=== PATIENT | female | born 1945 | race African-American/Black ===

== ENCOUNTER 2016-07-20 15:43 | Emergency (ER) | payer OTHER, BC ==
[2016-07-20 15:52] VITALS: PULSE 82; BMI 38.7
[2016-07-20 16:06] VITALS: TEMP 98.2
[2016-07-20] MEDS ORDERED: KETOROLAC TROMETHAMINE 30 MG/1 ML VIAL IVPUSH ONE (17:27)
--- NOTE | 2016-07-20 17:31 | PDOC ---
History of Present Illness - General History Source: Patient, Old Records Exam Limitations: No Limitations <JeffVenus - Last Filed: 07/20/16 17:28> - General History Source: Patient Exam Limitations: No Limitations - History of Present Illness Initial Comments: 07/20/16 17:45 The patient is a 71 year old female, with a significant past medical history of HTN, DM, CHF who presents to the emergency department with back pain secondary to back abscess. The patient endorsed a bug bite that occurred 2 weeks ago which she reports turned into an abscess. Patient visited her PMD and was treated with antibiotics after wound culture. As per patient, the wound has been spontaneously draining, however today her pain has progressively worsened. She states her pain radiates from her lower back to her axillary region, spasmodic in nature and exacerbated with movement. Patient reports taking Tylenol without significant relief. She denies chest pain, headache or dizziness. She denies fever, chills, nausea, vomit, diarrhea or constipation. She denies dysuria, frequency, urgency or hematuria. Allergies: NKA Past surgical history:None Social history: Denies toxic habits PCP: None <Tatyana Sierra - Last Filed: 07/20/16 17:45> <Ana Zhang - Last Filed: 07/20/16 22:58> - General Chief Complaint: Pain Stated Complaint: BACK PAIN, ABSCESS Time Seen by Provider: 07/20/16 17:00 Past History - Past Medical History Cardiac Disorders: Yes (CHF) Diabetes: Yes - Psycho/Social/Smoking Cessation Hx Suicidal Ideation: No Smoking History: Never smoked Information on smoking cessation initiated: No <Venus Augilar - Last Filed: 07/20/16 17:28> <Tatyana Sierra - Last Filed: 07/20/16 17:45> <Ana Zhang - Last Filed: 07/20/16 22:58> - Past Medical History Allergies/Adverse Reactions: Allergies Allergy/AdvReac Type Severity Reaction Status Date / Time No Known Allergies Allergy Verified 07/20/16 15:53 Home Medications: Ambulatory Orders Amoxicillin/Potassium Clav [Amox-Clav 250-125 mg Tablet] 1 each PO DAILY Bacitracin - [Bacitracin Topical Ointment -] 1 applic TP BID #10 g 04/15/17 Carvedilol [Coreg] 25 mg PO DAILY 07/20/16 Clindamycin [Cleocin -] 300 mg PO DAILY 07/20/16 Furosemide [Lasix] 40 mg PO DAILY 07/20/16 Ibuprofen [Motrin -] 600 mg PO TID #30 tablet 07/20/16 Metformin HCl [Metformin HCl ER] 1,000 mg PO DAILY 07/20/16 Valsartan 40 mg PO DAILY 07/20/16 Review of Systems - Review of Systems Able to Perform ROS?: Yes Comments:: 07/20/16 17:45 CONSTITUTIONAL: Absent: fever, no chills, no fatigue EYES: Absent: visual changes ENT: Absent: ear pain, no sore throat CARDIOVASCULAR: Absent: chest pain, no palpitations RESPIRATORY: Absent: cough, no SOB GI: Absent: abdominal pain, no nausea, no vomiting, no constipation, no diarrhea GENITOURINARY: Absent: dysuria, no frequency, no hematuria MUSCULOSKELETAL: +back pain. Absent: no arthralgia, no myalgia SKIN: Absent: rash <Tatyana Sierra - Last Filed: 07/20/16 17:45> *Physical Exam - Vital Signs Last Vital Signs Temp Pulse Resp BP Pulse Ox 98.2 F 82 18 145/64 97 07/20/16 15:53 07/20/16 15:48 07/20/16 15:48 07/20/16 15:48 07/20/16 15:48 <Venus Aguilar - Last Filed: 07/20/16 17:28> - Vital Signs Last Vital Signs Temp Pulse Resp BP Pulse Ox 98.2 F 82 18 145/64 97 07/20/16 15:53 07/20/16 15:48 07/20/16 15:48 07/20/16 15:48 07/20/16 15:48 - Physical Exam Comments: 07/20/16 17:45 GENERAL: Well-appearing, well-nourished. No apparent distress. HEENT: Normocephalic, atraumatic. PERRL, EOM intact. CARDIOVASCULAR: Normal S1, S2. Regular rate and rhythm. PULMONARY: Clear to auscultation bilaterally. ABDOMEN: Soft, non-distended, non-tender. EXTREMITIES: Normal ROM in all four extremities. No gross deformities. SKIN: +3x 2 cm midline area in the back approximately near T5 region with drainage. + Minimal amount of pus expressed. No surrounding erythema and no fluctuance appreciated however there is induration. Warm, dry. No rash NEUROLOGICAL: No focal neurological deficits. <Tatyana Sierra - Last Filed: 07/20/16 17:45> - Vital Signs Last Vital Signs Temp Pulse Resp BP Pulse Ox 98.2 F 82 18 145/64 97 07/20/16 15:53 07/20/16 15:48 07/20/16 18:40 07/20/16 15:48 07/20/16 18:40 <Ana Zhang - Last Filed: 07/20/16 22:58> ED Treatment Course - RADIOLOGY Radiology Studies Ordered: Category Date Time Status CHEST X-RAY PORTABLE* [RAD] Stat Radiology 07/20/16 17:27 Ordered <Venus Aguilar - Last Filed: 07/20/16 17:28> - LABORATORY CBC & Chemistry Diagram: 07/20/16 18:45 07/20/16 20:46 - ADDITIONAL ORDERS Additional order review: Laboratory Results 07/20/16 07/20/16 20:46 18:45 Sodium 143 Cancelled Potassium 4.2 Cancelled Chloride 108 H Cancelled Carbon Dioxide 24 Cancelled Anion Gap 11 Cancelled BUN 22 H Cancelled Creatinine 1.0 Cancelled Creat Clearance w eGFR 54.97 Cancelled Random Glucose 108 H Cancelled Calcium 9.7 Cancelled Total Bilirubin 0.5 Cancelled AST 19 Cancelled ALT 24 Cancelled Alkaline Phosphatase 71 Cancelled Creatine Kinase Cancelled Troponin I Cancelled Total Protein 6.6 Cancelled Albumin 3.5 Cancelled 07/20/16 18:45 RBC 3.63 MCV 85.6 MCHC 32.8 RDW 16.6 H MPV 11.6 H Neutrophils % 74.6 Lymphocytes % 14.4 Monocytes % 8.4 Eosinophils % 2.2 Basophils % 0.4 - Medications Given in the ED: ED Medications Discontinued Medications Generic Name Dose Route Start Last Admin Trade Name Freq PRN Reason Stop Dose Admin Ketorolac Tromethamine 30 mg 07/20/16 17:27 07/20/16 18:43 Toradol Injection - IVPUSH 07/20/16 17:28 30 mg ONCE ONE Administration <Ana Zhang - Last Filed: 07/20/16 22:58> Medical Decision Making - Medical Decision Making 07/20/16 17:28 71-year-old female with history of diabetes presents the emergency Department with complaints of pain to her upper back that is radiating around the right side of her chest since last night; the patient attributes this to an abscess that she has had for the past 2 weeks. Differential diagnosis includes but is not limited to: Musculoskeletal pain, atypical chest pain, pneumonia, anemia, electrolyte abnormality, toxic/metabolic derangement. Plan: 1. EKG 2. Ultrasound of the abscess shows a less than 1 cm draining pocket. There is surrounding induration but no erythema signifying cellulitis 3. Labs 4. Pain management 5. Observe and reevaluate <Venus Aguilar - Last Filed: 07/20/16 17:28> - Medical Decision Making 07/20/16 22:56 Pt signed out to me. Labs normal. SHe comes with pain secondary to her infected sebacious cyst on her upper mid back. Area is not infected at this time. Some thick sebacious material squeezed out didn't smell foul or infected. Pt is to continue her abx that was given to her by her PMD. SHe states that the toradol she received helped the pain, so I sent her home with motrin. She was also given bacitracin ointment by me, as she hopes to continue warm compresses. <Ana Zhang - Last Filed: 07/20/16 22:58> *DC/Admit/Observation/Transfer - Attestations Physician Attestion: 07/20/16 17:30 I, Dr. Venus Aguilar, attest that the scribes documentation that appears above has been prepared under my direction and personally reviewed by me in its entirety. I confirmed that the note above accurately reflects all work, treatment, procedures, and medical decision-making performed by me. <Venus Aguilar - Last Filed: 07/20/16 17:28> - Attestations Scribe Attestion: 07/20/16 17:46 Documentation prepared by Tatyana Sierra, acting as medical cost consultant for Venus Aguilar MD <Tatyana Sierra - Last Filed: 07/20/16 17:45> - Discharge Dispostion Admit: No <Ana Zhang - Last Filed: 07/20/16 22:58> Diagnosis at time of Disposition: Abscess, Back pain - Discharge Dispostion Disposition: HOME Condition at time of disposition: Improved - Prescriptions Prescriptions: Bacitracin - [Bacitracin Topical Ointment -] 1 applic TP BID #10 g Ibuprofen [Motrin -] 600 mg PO TID #30 tablet - Referrals Referrals: STAFF,NOT ON [Primary Care Provider] - - Patient Instructions Printed Discharge Instructions: DI for Folliculitis, DI for Skin Abscess
[2016-07-20] MEDS ORDERED: KETOROLAC TROMETHAMINE 30 MG/1 ML VIAL ONE (18:40)
[2016-07-20 18:55] LABS: BASOPHIL 0.4 % (0-2.0); EOSINOPHIL 2.2 % (0-4.5); MCH 28.1 pg (25.7-33.7); MCHC 32.8 g/dl (32.0-36.0); MEAN CELL VOLUME 85.6 fl (80-96); MEAN PLT VOLUME 11.6 fl (7.5-11.1); NEUTROPHILS 74.6 % (42.8-82.8); PLATELET COUNT 155 K/MM3 (134-434); RDW 16.6 % (11.6-15.6); WHITE BLOOD COUNT 10.2 K/mm3 (4.0-10.0)
[2016-07-20 21:16] LABS: ALBUMIN 3.5 g/dl (3.4-5.0); CALCIUM 9.7 mg/dL (8.5-10.1); COCKROFT - GAULT 80.597
[2016-07-20 21:19] LABS: BILIRUBIN,TOTAL 0.5 mg/dL (0.2-1.0); TOT PROT 6.6 g/dl (6.4-8.2)
[2016-07-20 23:11] VITALS: BP 139/66
--- NOTE | 2016-07-21 14:23 | EKG ---
Test Reason : Blood Pressure : / mmHG Vent. Rate : 071 BPM Atrial Rate : 071 BPM P-R Int : 190 ms QRS Dur : 114 ms QT Int : 408 ms P-R-T Axes : 068 -55 029 degrees QTc Int : 443 ms NORMAL SINUS RHYTHM LEFT AXIS DEVIATION MODERATE VOLTAGE CRITERIA FOR LVH, MAY BE NORMAL VARIANT INFERIOR INFARCT , AGE UNDETERMINED POOR R WAVE PROGRESSION ABNORMAL ECG NO PREVIOUS ECGS AVAILABLE CLINICAL CORRELATION IS RECOMMENDED Confirmed by YESSI RICH, ADRIAN ([id number]) on 07/21/2016 2:23:31 PM Referred By: Confirmed By:ADRIAN DICKSON MD
== END 2016-07-20 21:45 | disposition home or self-care (01) ==
LOC: JER 15:43
PROC: 3E0333Z Introduction of Anti-inflammatory into Peripheral Vein, Percutaneous Approach (ICD-10-PCS; principal; 2016-07-20)
DX: L02.212 Cutaneous abscess of back [any part, except buttock and flank] (principal); M54.9 Dorsalgia, unspecified
CPT/HCPCS: 36415; 71010-TC; 80053; 85025; 93005; 93010; 99283-25